=== PATIENT | male | born 1995 | race African-American/Black ===

== ENCOUNTER 2019-02-04 18:11 | Emergency (ER) | payer SELFPAY ==
[~2019-02-04] VITALS: Ht 180.3 cm; Wt 80.0 kg
[2019-02-04] MEDS ORDERED: KEPP500 PO (18:14)
[2019-02-04] MEDS ORDERED: ONDANSETRON HCL 4MG/2ML INJ IV STA (18:41)
[2019-02-04] MEDS ORDERED: SODIUM CHLORIDE 0.9% 1,000 ML IV ONE (18:41)
[2019-02-04] MEDS ORDERED: LEVETIRACETAM 500MG PREMIX 100 ML IV ONE (18:45)
[2019-02-04 19:49] LABS: BASOPHILS % 0.4 % (0.0-2.0); EOSINOPHILS % 0.3 % (0.0-5.0); HEMATOCRIT. 42.1 % (42.0-52.0); HEMOGLOBIN. 14.3 g/dL (14.0-18.0); LYMPHOCYTES % 12.7 % (20.0-50.0); MEAN CORPUSCULAR HEMOGLOBIN 28.8 pg (28.0-32.0); MEAN CORPUSCULAR VOLUME 85.1 fL (80.0-94.0); MEAN PLATELET VOLUME 8.3 fl (7.4-10.4); MONOCYTES % 5.2 % (2.0-8.0); NEUTROPHILS % 81.4 % (40.0-76.0); PLATELET 211 x1000/uL (130-400); RED BLOOD CELL COUNT 4.95 mill/uL (4.7-6.1); RED CELL DISTRIBUTION WIDTH 13.4 % (11.6-14.6)
[2019-02-04 19:50] LABS: CLARITY URINE CLOUDY (CLEAR); COLOR URINE YELLOW (YELLOW); KETONES URINE TRACE (NEGATIVE); LEUKOCYTE ESTERASE URINE NEGATIVE (NEGATIVE); NITRITE URINE NEGATIVE (NEGATIVE); OCCULT BLOOD URINE NEGATIVE (NEGATIVE); PROTEIN URINE 2+ (NEGATIVE); SPECIFIC GRAVITY URINE 1.017 (1.005-1.030); UROBILINOGEN URINE 0.2 E.U./dL (0.2-1.0)
[2019-02-04 19:57] LABS: CHLORIDE 107 mEq/L (98-107)
[2019-02-04 20:00] LABS: ETHANOL BLOOD < 10 mg/dL
[2019-02-04 20:12] LABS: *AMPHETAMINES SCREEN URINE NEGATIVE (NEGATIVE); *BARBITURATES SCREEN URINE NEGATIVE (NEGATIVE); *BENZODIAZEPINES SCREEN URINE NEGATIVE (NEGATIVE); *COCAINE SCREEN URINE NEGATIVE (NEGATIVE); CANNABINOID URINE SCREEN PRESUMTIVE POSITIVE (NEGATIVE); METHADONE URINE SCREEN NEGATIVE (NEGATIVE)
[2019-02-04 20:13] LABS: OPIATES URINE SCREEN NEGATIVE (NEGATIVE); PHENCYCLIDINE URINE SCREEN NEGATIVE (NEGATIVE)
[2019-02-04 20:13] LABS: CARBAMAZEPINE < 0.5 ug/mL (4-12); PHENOBARBITAL < 2.1 ug/mL (15.0-40.0); VALPROIC ACID < 3.0 ug/mL (50-100)
[2019-02-04 22:52] VITALS: BP 114/71
== END 2019-02-04 23:32 | disposition home or self-care (01) ==
LOC: ER 18:11
DX: S09.8XXA Other specified injuries of head, initial encounter (principal); S01.552A Open bite of oral cavity, initial encounter; E86.0 Dehydration; X58.XXXA Exposure to other specified factors, initial encounter; Y93.89 Activity, other specified; Y92.89 Other specified places as the place of occurrence of the external cause; Y99.8 Other external cause status; Z79.899 Other long term (current) drug therapy
CPT/HCPCS: 36415; 80053; 80156; 80165; 80184; 80185; 80305; 80320; 81003; 84443; 85025; 96365; 96366; 96375; 99284; J1953; J2405; J7030; Z7610; G0480